=== PATIENT | female | born 1990 | race Native Hawaiian/Other Pacific Islander ===

== ENCOUNTER 2016-05-07 21:39 | Emergency (ER) | payer OTHER ==
[2016-05-07 21:59] VITALS: BP 137/82; PULSE 81; RESP 18; TEMP 98.2; O2SAT 97
[2016-05-07] MEDS ORDERED: ONDANSETRON 4 MG/2 ML VIAL IVP ONE (21:59)
[2016-05-07] MEDS ORDERED: NS 1,000 ML IV ONE (21:59)
--- NOTE | 2016-05-07 22:08 | UCPHY ---
H & P Time Seen by Provider: 05/07/16 21:55 HPI/ROS: CHIEF COMPLAINT: Nausea, vomiting, diarrhea, abdominal pain. HISTORY OF PRESENT ILLNESS: The patient is a 25 year-old female who presents with vomiting, diarrhea, and abdominal pain since yesterday. The abdominal pain is described as a pressure and is in the epigastrium. The vomiting and diarrhea have been occurring every 2 hours since onset. She denies associated fever, hematemesis, bloody stool. She ate chicken last night and believes this may be causing her symptoms. REVIEW OF SYSTEMS: Aside from elements discussed in the HPI, a comprehensive 10-point review of systems was reviewed and is negative. PAST MEDICAL HISTORY: Ulcer. SOCIAL HISTORY: Nonsmoker, no alcohol use. VITAL SIGNS: Reviewed by me GENERAL: Well-developed, well-nourished, resting comfortably in no respiratory distress. HEENT: Atraumatic. Eyes: No icterus, no injection. Mouth: moist mucous membranes. No erythema or lesions. Neck: supple with no adenopathy. LUNGS: Clear to auscultation bilaterally, no wheezes, rhonchi or rales. CARDIAC: Regular rate and rhythm, no rubs, murmurs or gallops. ABDOMEN: Epigastric tenderness. Soft, nondistended, bowel sounds normal. BACK: No CVA tenderness. EXTREMITIES: No trauma. No edema. Range of motion is normal throughout. NEURO: Alert and oriented, grossly nonfocal. SKIN: Warm and dry, no rash. PSYCHIATRIC: Normal mentation, no agitation. Portions of this note were transcribed by a medical imaging director. I personally performed a history, physical exam, medical decision making, and confirmed accuracy of information the transcribed note. Smoking Status: Never smoked Constitutional: Initial Vital Signs Temperature (C) 36.8 C 05/07/16 21:56 Heart Rate 81 05/07/16 21:56 Respiratory Rate 18 05/07/16 21:56 Blood Pressure 137/82 H 05/07/16 21:56 O2 Sat (%) 97 05/07/16 21:56 O2 Delivery Mode Room Air Allergies/Adverse Reactions: promethazine HCl [From Phenergan] Allergy (Verified 05/07/16 21:55) Home Medications: Medication Instructions Recorded Hydrocodone/APAP 5/325 [[place] 1 tab PO Q6H PRN #10 tab 05/07/16 5/325 (RX)] Ondansetron Odt [Zofran Odt 4 mg 4 mg PO Q6 PRN #8 tab 05/07/16 (RX)] Medical Decision Making ED Course/Re-evaluation: An IV was established and labs ordered. 1L IV saline administered for hydration. WBC negative at 5.05. Patient was reexamined at old 10:45 p.m.. Her nausea is improving. She has received approximately 800 cc of normal saline. She still complains of epigastric discomfort. On examination she has mild epigastric tenderness and supraumbilical tenderness to deep palpation. No right lower quadrant tenderness. No right upper quadrant tenderness. Additional pain meds were ordered. Patient was reexamined at 11:20 p.m.. She reports feeling better. She has very minimal abdominal discomfort. She has no right lower quadrant tenderness. No flank tenderness. Her nausea has been controlled. I offered her a transfer to the emergency department for ongoing therapies which she declined. We discussed reasons to return to Urgent Care. Patient will be discharged with Zofran as well as hydrocodone. Please see the discharge instructions. Differential Diagnosis: Differential diagnosis of the patient's nausea and vomiting was considered including but not limited to gastroenteritis, gastritis, intraabdominal processes including appendicitis, pancreatitis, bowel obstruction. - Data Points Laboratory Results: Laboratory Results 05/07/16 22:05 05/07/16 22:05 05/07/16 05/07/16 Unknown 22:05 WBC 5.05 10^3/uL (3.80-9.50) RBC 5.13 10^6/uL (4.18-5.33) Hgb 15.4 g/dL (12.6-16.3) Hct 44.8 % (38.0-47.0) MCV 87.3 fL (81.5-99.8) MCH 30.0 pg (27.9-34.1) MCHC 34.4 g/dL (32.4-36.7) RDW 13.2 % (11.5-15.2) Plt Count 213 10^3/uL (150-400) MPV 11.0 fL (8.7-11.7) Neut % (Auto) 67.5 % (39.3-74.2) Lymph % (Auto) 19.2 % (15.0-45.0) [place] % (Auto) 9.9 % (4.5-13.0) Eos % (Auto) 2.4 % (0.6-7.6) Baso % (Auto) 0.4 % (0.3-1.7) Nucleat RBC Rel Count 0.0 % (0.0-0.2) Absolute Neuts (auto) 3.41 10^3/uL (1.70-6.50) Absolute Lymphs (auto) 0.97 L 10^3/uL (1.00-3.00) Absolute Monos (auto) 0.50 10^3/uL (0.30-0.80) Absolute Eos (auto) 0.12 10^3/uL (0.03-0.40) Absolute Basos (auto) 0.02 10^3/uL (0.02-0.10) Absolute Nucleated RBC 0.00 10^3/uL (0-0.01) Immature Gran % 0.6 % (0.0-1.1) Immature Gran # 0.03 10^3/uL (0.00-0.10) Sodium Cancelled Potassium Cancelled Chloride Cancelled Carbon Dioxide Cancelled Anion Gap Cancelled BUN Cancelled Creatinine Cancelled Estimated GFR Cancelled Glucose Cancelled Calcium Cancelled Total Bilirubin 1.0 mg/dL Cancelled (0.1-1.4) Conjugated Bilirubin 0.3 mg/dL (0.0-0.5) Unconjugated Bilirubin 0.7 mg/dL (0.0-1.1) AST 37 IU/L Cancelled (14-46) ALT 49 IU/L Cancelled (9-52) Alkaline Phosphatase 90 IU/L Cancelled (38-126) Total Protein 7.4 g/dL Cancelled (6.3-8.2) Albumin 4.0 g/dL Cancelled (3.5-5.0) Lipase 42.0 IU/L Cancelled (23-300) Beta HCG, Qual NEGATIVE Medications Given: Discontinued Medications Fentanyl (Sublimaze) 50 mcg IVP EDNOW ONE Stop: 05/07/16 22:12 Last Admin: 05/07/16 22:15 Dose: 50 mcg Sodium Chloride (Ns) 1,000 mls @ 0 mls/hr IV ONCE ONE PRN Reason: Wide Open Stop: 05/07/16 22:00 Last Admin: 05/07/16 22:11 Dose: 1,000 mls Ondansetron HCl (Zofran) 4 mg IVP EDNOW ONE Stop: 05/07/16 22:00 Last Admin: 05/07/16 22:12 Dose: 4 mg Departure - Departure Disposition: Home, Routine, Self-Care Clinical Impression: Vomiting Qualifiers: Qualifier Code: (R11.2) Nausea with vomiting, unspecified Diarrhea Qualifiers: Qualifier Code: (R19.7) Diarrhea, unspecified Condition: Good Instructions: Acute Nausea and Vomiting (ED), Acute Diarrhea (ED) Additional Instructions: Slowly advance diet as tolerable. Be sure to get rest. Drink plenty of clear fluids. For your abdominal pain and nausea, I suggested you start with a bland diet and advance as tolerated. This means start with clear liquids such as water, Gatorade, juice, flat non- caffeinated soda. If you tolerate clear liquids, then you may add bland foods such as bananas, rice, or toast. If you do not have any worsening of your symptoms, you may begin to resume a regular diet. If your symptoms are worsening, especially if you develop ongoing abdominal pain , pain in the right lower portion of her abdomen, pain in her back, fevers, vomiting that is not controlled with the Zofran, diarrhea which is bloody, or have other concerns, please seek medical care. You may return to urgent care or go to the emergency department. Return to Urgent Care or seek out the emergency department if you experience worsening pain, bloody vomit, bloody stool, fever, or other serious worsening of condition. Referrals: LAWRENCE NAQVI,. [Primary Care Provider] - As per Instructions - PQRS PQRS Measurement: Not applicable Report Scribed for: Maria Luz Dumas Report Scribed by: Jam Skaggs Date of Report: 05/07/16 Time of Report: 22:08
[2016-05-07 22:11] LABS: % IMMATURE GRANULYOCYTES 0.6 % (0.0-1.1); ABSOLUTE IMMATURE GRANULOCYTES 0.03 10^3/uL (0.00-0.10); ADD DIFF? NO; ADD MORPH? NO; ADD SCAN? NO; ATYPICAL LYMPHOCYTE FLAG 30 (0-99); FRAGMENT RBC FLAG 0 (0-99); HEMATOCRIT 44.8 % (38.0-47.0); HEMOGLOBIN 15.4 g/dL (12.6-16.3); LEFT SHIFT FLG 0 (0-99); LIPEMIA HEMOLYSIS FLAG 90 (0-99); MEAN CELL HEMOGLOBIN CONCENTR. 34.4 g/dL (32.4-36.7); MEAN CELL VOLUME 87.3 fL (81.5-99.8); PLATELET CLUMPS FLAG 0 (0-99); PLATELET COUNT 213 10^3/uL (150-400); RED BLOOD CELL COUNT 5.13 10^6/uL (4.18-5.33); RED CELL DISTRIBUTION WIDTH 13.2 % (11.5-15.2)
[2016-05-07] MEDS ORDERED: fentaNYL 100 MCG/2 ML INJ IVP ONE (22:11)
[2016-05-07 22:26] LABS: ANION GAP 11 mEq/L (8-16); CALCIUM 9.2 mg/dL (8.5-10.4); CARBON DIOXIDE 25 mEq/l (22-31); CHLORIDE 104 mEq/L (97-110); CREATININE 0.8 mg/dL (0.6-1.0); GLOMERULAR FILTRATION RATE > 60; GLUCOSE 109 mg/dL (70-100); POTASSIUM 3.5 mEq/L (3.5-5.2); SODIUM 140 mEq/L (134-144)
[2016-05-07 22:41] LABS: BILIRUBIN-CONJUGATED 0.3 mg/dL (0.0-0.5); BILIRUBIN-UNCONJUGATED 0.7 mg/dL (0.0-1.1); TOTAL PROTEIN 7.4 g/dL (6.3-8.2)
[2016-05-07] MEDS ORDERED: HYDROmorphONE/DILAUDID 1 MG/ML SYR IVP ONE (22:44)
[2016-05-07] MEDS ORDERED: ONDANSETRON 4MG PREPACK#2 BTL TAKEHOME ONE (23:24)
[2016-05-07] MEDS ORDERED: HYDROCOD/APAP 5/325 PREPACK#6 BTL TAKEHOME ONE (23:24)
== END 2016-05-07 23:43 | disposition home or self-care (01) ==
LOC: CED 21:39
DX: R11.2 Nausea with vomiting, unspecified (principal); R19.7 Diarrhea, unspecified; R10.9 Unspecified abdominal pain
CPT/HCPCS: 80048-PO; 80076-PO; 83690-PO; 84703-PO; 85025-PO; 96361-PO; 96374-PO; 96375-PO; G0463-PO; J1170; J3010

== ENCOUNTER 2016-08-23 21:58 | Emergency (ER) | payer OTHER ==
[2016-08-23 22:13] VITALS: BP 121/81; PULSE 84; RESP 18; TEMP 97.7; O2SAT 95
[2016-08-23] MEDS ORDERED: AMOXICILLIN 250 MG PREPACK#4 BTL TAKEHOME ONE (22:21)
[2016-08-23] MEDS ORDERED: IBUPROFEN 200 MG TAB PO ONE (22:24)
--- NOTE | 2016-08-23 22:24 | UCPHY ---
H & P Time Seen by Provider: 08/23/16 22:13 Patient Type: Established HPI/ROS: This patient complains of a 2 week history of nasal congestion with the last 3 or 4 days increasing frontal sinus pain that is no moderate intensity worsens when she bends forward. She also has left more than right ear pressure. She reports a cough associated with her symptoms is primarily dry cough with rare production of sputum. She has tried loratadine Afrin without significant improvement. She also tried Advil Sinus but only took 200 mg dose this morning. No other exacerbating or alleviating factors. ROS: No high fevers or chills. No other constitutional symptoms. HEENT: She reports no significant sore throat. Neuro: No confusion. No visual changes. No numbness tingling weakness. No neck stiffness. Pulmonary: No pleuritic pain or respiratory distress. Cardiovascular: No lightheadedness. GI: No vomiting. Integumentary: No skin rash. 7 point ROS is otherwise negative Past Medical/Surgical History: Otherwise healthy Smoking Status: Never smoked Physical Exam: Physical Exam Vital signs are normal. General: No acute distress HEENT: Nose: Clear discharge bilaterally. No sinus tenderness to percussion. Ears: External canals and tympanic membranes are clear with no erythema or abnormal findings bilaterally. Oropharynx: No erythema or exudates. No dysphonia. No drooling or stridor. Eyes: Pupils equal and react to light. Extraocular motions are intact. Neck: Supple with no meningismus. No lymphadenopathy Lungs: Clear to auscultation bilaterally with no rales, rhonchi or wheeze. No respiratory distress. Cardiac: Regular rate and rhythm with no murmur gallop or rub Skin: No rash or pallor. Neuro: Alert with no focal deficits noted. Initial differential diagnosis: Viral rhinosinusitis versus bacterial sinusitis , postnasal drip with cough, doubt bronchitis. Constitutional: Initial Vital Signs Temperature (C) 36.5 C 08/23/16 22:12 Heart Rate 84 08/23/16 22:12 Respiratory Rate 18 08/23/16 22:12 Blood Pressure 121/81 H 08/23/16 22:12 O2 Sat (%) 95 08/23/16 22:12 O2 Delivery Mode Room Air Allergies/Adverse Reactions: promethazine HCl [From Phenergan] Allergy (Verified 05/07/16 21:55) Home Medications: Medication Instructions Recorded Amoxicillin Trihydrate [Amoxil] 500 mg PO TID #30 cap 08/23/16 Fluticasone Nasal [Flonase Nasal 2 sprays NASAL DAILY #1 mdi 08/23/16 Currie] MDM/Departure - [facility] ED Course/Re-evaluation: This patient appears well clinically. She has findings consistent with sinusitis. I counseled her regarding this. She is given a 1st dose of Amoxil antibiotic, ibuprofen as well. Encouraged her to stop the Afrin nasal stray, start Flonase and increased the dose of the ibuprofen. No findings clinically to suggest MANAG[employer] TRA[employer] infection or other complicating factors. - Depart Disposition: Home, Routine, Self-Care Clinical Impression: Cough Acute sinusitis Qualifiers: Sinusitis location: frontal Recurrence: non-recurrent Qualified Code(s): J01.10 - Acute frontal sinusitis, unspecified Condition: Good Instructions: Amoxicillin (By mouth), Sinusitis (ED) Additional Instructions: Diagnosis: Sinusitis 2. Cough Plan: Humidifier Plain guaifenesin [id number] mucolytic Stop the other nasal spray and start Flovent steroid nasal spray [id number] mg per 6 hours for swelling and pain Amoxil antibiotic Symptoms should gradually improve over the next 5-7 days Return for any significant worsening despite the treatment plan Prescriptions: Amoxicillin Trihydrate [Amoxil] 500 mg PO TID #30 cap Fluticasone Nasal [Flonase Nasal Currie] 2 sprays NASAL DAILY #1 mdi Referrals: LAWRENCE NAQVI,Gerri [Primary Care Provider] - As per Instructions - PQRS PQRS Measurement: GIRMA
== END 2016-08-23 22:33 | disposition home or self-care (01) ==
LOC: CED 21:58
DX: J01.10 Acute frontal sinusitis, unspecified (principal); R05 Cough
CPT/HCPCS: 99214-PO; G0463-PO

== ENCOUNTER 2017-02-14 15:21 | Emergency (ER) | payer OTHER ==
[2017-02-14 15:46] VITALS: BP 134/75; PULSE 75; RESP 16; TEMP 98.6; O2SAT 98
--- NOTE | 2017-02-14 15:57 | EDPHY ---
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 The old woman pulled on her hand and caused the patient to have pain in her thoracic, cervical and lumbar spine. This happened around noon. She took 2 ibuprofen which has helped to some degree. She denies head any weakness numbness. No bowel or bladder abnormalities. REVIEW OF SYSTEMS: Constitutional: denies: chills, fever, recent illness, recent injury EENTM: denies: blurred vision, double vision, nose congestion Respiratory: denies: cough, shortness of breath Cardiac: denies: chest pain, irregular heart rate, lightheadedness, palpitations Gastrointestinal/Abdominal: denies: abdominal pain, diarrhea, nausea, vomiting, blood streaked stools Genitourinary: denies: dysuria, frequency, hematuria, pain Musculoskeletal: See HPI Skin: denies: lesions, rash, jaundice, bruising Neurological: denies: headache, numbness, paresthesia, tingling, dizziness, weakness Hematologic/Lymphatic: denies: blood clots, easy bleeding, easy bruising Immunologic/allergic: denies: HIV/AIDS, transplant EXAM: GENERAL: Well-appearing, well-nourished and in no acute distress. HEAD: Atraumatic, normocephalic. EYES: Pupils equal round and reactive to light, extraocular movements intact, sclera anicteric, conjunctiva are normal. ENT: TMs normal, nares patent, oropharynx clear without exudates. Moist mucous membranes. NECK: Normal range of motion, supple without lymphadenopathy or JVD. LUNGS: Breath sounds clear to auscultation bilaterally and equal. No wheezes rales or rhonchi. HEART: Regular rate and rhythm without murmurs, rubs or gallops. ABDOMEN: Soft, nontender, normoactive bowel sounds. No guarding, no rebound. No masses appreciated. BACK: No CVA tenderness, no spinal tenderness, step-offs or deformities pain to the paraspinal muscles no tenderness, improves with massage EXTREMITIES: Normal range of motion, no pitting or edema. No clubbing or cyanosis. NEUROLOGICAL: Cranial nerves II through XII grossly intact. Normal speech, normal gait. 5/5 strength, normal movement in all extremities, normal sensation PSYCH: Normal mood, normal affect. SKIN: Warm, dry, normal turgor, no visible rashes or lesions. Source: Patient Exam Limitations: No limitations - Personal History Current Tetanus Diphtheria and Acellular Pertussis (TDAP): Yes - Medical/Surgical History Hx Asthma: No Hx Chronic Respiratory Disease: No Hx Diabetes: No Hx Cardiac Disease: No Hx Renal Disease: No Hx Cirrhosis: No Hx Alcoholism: No Hx HIV/AIDS: No Hx Splenectomy or Spleen Trauma: No Other PMH: denies - Family History Significant Family History: No pertinent family hx - Social History Smoking Status: Never smoked Alcohol Use: Sober Drug Use: None Constitutional: Initial Vital Signs Temperature (C) 37 C 02/14/17 15:45 Heart Rate 75 02/14/17 15:45 Respiratory Rate 16 02/14/17 15:45 Blood Pressure 134/75 H 02/14/17 15:45 O2 Sat (%) 98 02/14/17 15:45 O2 Delivery Mode Room Air Allergies/Adverse Reactions: promethazine HCl [From Phenergan] Allergy (Verified 02/14/17 15:45) Home Medications: Medication Instructions Recorded NK [No Known Home Meds] 02/14/17 Medical Decision Making ED Course/Re-evaluation: Patient has a very low risk mechanism for bony injury. We will treat with conservative therapy. I encouraged ice and heat as well as anti- inflammatories. I also encouraged her to strength in her back to physical therapy once her symptoms improved. She agrees with this plan. We will defer x -rays this time. She is requesting a note for work tomorrow. Differential Diagnosis: Partial list of the Differential diagnosis considered include but were not limited to; cervical sprain, low back pain, thoracic pain, disc bulge and although unlikely based on the history and physical exam, I also considered radiculopathy, fracture. Departure - Departure Disposition: Home, Routine, Self-Care Clinical Impression: Muscle strain Condition: Fair Instructions: Muscle Strain (ED) Referrals: LAWRENCE NAQVI,. [Primary Care Provider] - As per Instructions Stand Alone Forms: Work Excuse
== END 2017-02-14 16:08 | disposition home or self-care (01) ==
LOC: CED 15:21
DX: S39.012A Strain of muscle, fascia and tendon of lower back, initial encounter (principal); X58.XXXA Exposure to other specified factors, initial encounter; Y92.69 Other specified industrial and construction area as the place of occurrence of the external cause; Y99.0 Civilian activity done for income or pay; Y93.89 Activity, other specified

== ENCOUNTER → 2017-02-17 | Outpatient (CLI) | payer OTHER | LOC: BRMIMAGING 16:03 | PROVIDERS: ATTEND Specialist | DX: M54.2 Cervicalgia (principal) | CPT/HCPCS: 72050-PO ==

== ENCOUNTER 2017-10-07 09:42 | Emergency (ER) | payer SELFPAY ==
[2017-10-07] MEDS ORDERED: ONDANSETRON 4 MG/2 ML VIAL IVP ONE (09:55)
[2017-10-07] MEDS ORDERED: NS 1,000 ML IV ONE (09:55)
[2017-10-07] MEDS ORDERED: KETOROLAC 30 MG/1 ML SDV IVP ONE (09:55)
[2017-10-07] MEDS ORDERED: DEXAMETHASONE 10 MG/ML VIAL IVP ONE (09:58)
--- NOTE | 2017-10-07 10:09 | EDPHY ---
H & P Time Seen by Provider: 10/07/17 09:48 HPI/ROS: HPI Lightheaded, headache. 26-year-old female by private vehicle with her . This patient reports that she was sitting on the toilet this morning. When she got up from the toilet she felt lightheaded and her vision went black. She reports that she almost lost consciousness but did not. She had associated nausea and a gradual onset headache which she describes as frontal and increased in intensity slowly but has now gotten better and she states that she feels some headache in the back of her head. She had 2 episodes of vomiting at home which she describes as clear. She called work and tried to get out of going to work but had to go in. When she got to work she had continued lightheadedness and nausea. She was then told to leave work. She came from work to the emergency department with her . ROS: Constitutional: No fever, no chills. As above. Eyes: No discharge. No changes in vision. ENT: No sore throat. No nasal congestion or rhinorrhea. Respiratory: No cough. No shortness of breath. Cardiac: No chest pain, no palpitations. Gastrointestinal: No abdominal pain, as above, no diarrhea. Genitourinary: No hematuria. No dysuria or increased frequency with urination. Musculoskeletal: No back pain. No neck pain. No myalgias or arthralgias. Skin: No rashes. Neurological: As above. No focal weakness or altered sensation. Past medical history: She denies any significant past medical history. She is not on any prescription medications. Social history: Nonsmoker. Denies alcohol. Here with her . No IV drugs or street drugs. Physical Exam: General Appearance: Alert, no distress. This patient is responding to questions appropriately and in full sentences. This patient appears well- hydrated and well-nourished. Eyes: Pupils equal and round no pallor or injection. No lid edema, erythema or injection. No photophobia. No nystagmus. ENT, Mouth: Mucous membranes are moist. The pharyngeal tissues are unremarkable. No edema or swelling. No asymmetry suggestive of abscess. No erythema or exudates. No tongue lacerations or abrasions. Respiratory: There are no retractions, lungs are clear to auscultation with good air movement bilaterally. Cardiovascular: Regular rate and rhythm. No murmur. Gastrointestinal: Abdomen is soft and nontender, no masses, bowel sounds normal. No focal tenderness at McBurney's point. No Lerner sign. Neurological: Motor sensory function is grossly intact. Cranial nerves are normal. Gait is normal. Skin: Warm and dry, no rashes. Musculoskeletal: Neck is supple and nontender. No pain on flexion of her neck. No suboccipital tenderness on palpation. No tenderness of the lateral soft tissues of the neck. Extremities are symmetrical. All joints range without pain or impingement. Psychiatric: No agitation. No depression. Database: Urinalysis and urine negative. EKG: EKG time is 10:40 a.m.; EKG shows a narrow complex normal sinus rhythm with a ventricular rate of 100. The RI, QRS, QT intervals are within normal limits. There are no ST-T wave changes indicative of ischemic or injury pattern. No evidence of right heart strain. Interpreted by me. Imaging: Procedures: Emergency department course: Triage vital signs were reviewed. She was moderately hypertensive and borderline tachycardic. She is afebrile. IV was placed. She was started on IV normal saline with 500 cc to 1 L to be given over the next hour. Hemoglobin and hematocrit will be checked as well as a basic metabolic panel, urinalysis and urine . Her presentation is consistent with a vasovagal near- syncope event in an associated migraine headache syndrome. She will be given 30 mg of IV Toradol and 10 mg of IV Decadron and 4 mg of IV Zofran. She has no contraindications to NSAIDs. 11:00 a.m., patient re-evaluated. Resting comfortably at this time. Blood pressure is now 126/83. Heart rate is 82. She reports resolution of her headache. Repeat neurologic Assessment is nonfocal. Her neck is supple. No pain on flexion of her head. I discussed the results of her emergency department workup with her and her . I feel she is safe for discharge at this time and she feels comfortable going home with her . I have instructed her to follow up with her primary care physician at [facility] for re- evaluation within the next 1-2 days and to have her blood pressure rechecked again. She will do this. Return to emergency department precautions were reviewed with her. All of her questions were answered. She was discharged from the emergency department in good condition with her . Differential Diagnosis: The differential diagnosis on this patient includes but is not limited to migraine headache syndrome, vasovagal syncope, dehydration. Hypoglycemia, hyponatremia, seizure, cardiac arrhythmia, subarachnoid hemorrhage, meningitis, encephalitis, carotid artery dissection, vertebral artery dissection unlikely. This represents a partial list of diagnoses considered. These considerations are based on history, physical exam, past history, reassessment and diagnostic testing. Smoking Status: Never smoked Constitutional: Initial Vital Signs Temperature (C) 37.0 C 10/07/17 09:48 Heart Rate 100 10/07/17 09:48 Respiratory Rate 18 10/07/17 09:48 Blood Pressure 149/108 H 10/07/17 09:48 O2 Sat (%) 95 10/07/17 09:48 O2 Delivery Mode Room Air Allergies/Adverse Reactions: promethazine HCl [From Phenergan] Allergy (Verified 10/07/17 09:49) Home Medications: Medication Instructions Recorded NK [No Known Home Meds] 02/14/17 Medical Decision Making - Data Points Laboratory Results: 10/07/17 10:31 POC Hgb 16.7 gm/dL H gm/dL (12.6-16.3) POC Hct 49 % H % (38-47) POC Sodium 140 mEq/L mEq/L (135-145) POC Potassium 3.5 mEq/L mEq/L (3.3-5.0) POC Chloride 102 mEq/L mEq/L (97-110) POC BUN 16 mg/dL mg/dL (7-23) POC Creatinine 0.7 mg/dL mg/dL (0.6-1.0) POC Glucose 111 mg/dL H mg/dL (70-100) Medications Given: Discontinued Medications Dexamethasone (Decadron Injection) 10 mg IVP EDNOW ONE Stop: 10/07/17 09:59 Last Admin: 10/07/17 10:29 Dose: 10 mg Sodium Chloride (Ns) 1,000 mls @ 0 mls/hr IV ONCE ONE; Wide Open PRN Reason: Protocol Stop: 10/07/17 09:56 Last Admin: 10/07/17 10:24 Dose: 1,000 mls Ketorolac Tromethamine (Toradol) 30 mg IVP EDNOW ONE Stop: 10/07/17 09:56 Last Admin: 10/07/17 10:31 Dose: 30 mg Ondansetron HCl (Zofran) 4 mg IVP EDNOW ONE Stop: 10/07/17 09:56 Last Admin: 10/07/17 10:25 Dose: 4 mg Point of Care Test Results: Chemistry 10/07/17 10:31 POC Sodium 140 mEq/L mEq/L (135-145) POC Potassium 3.5 mEq/L mEq/L (3.3-5.0) POC Chloride 102 mEq/L mEq/L (97-110) POC BUN 16 mg/dL mg/dL (7-23) POC Creatinine 0.7 mg/dL mg/dL (0.6-1.0) POC Glucose 111 mg/dL H mg/dL (70-100) ISTAT H&H 10/07/17 10:31 POC Hgb 16.7 gm/dL H gm/dL (12.6-16.3) POC Hct 49 % H % (38-47) Urine Collection Date 10/07/17 Collection Time 10:00 HCG Results Negative Urine Dip Collection Date 10/07/17 Collection Time 10:00 Specific [place] (1.002-1.030) 1.020 PH (5.0-7.5) 7.0 Leukocytes (Negative) Trace Nitrites (Negative) Negative Protein (Negative) Trace Glucose (Negative) Negative Ketones (Negative) Negative Urobilnogen (0.2-1.0 EU) 0.2 Bilirubin (Negative) Negative Blood (Negative) Negative Departure - Departure Disposition: Home, Routine, Self-Care Clinical Impression: Headache, Lightheaded Condition: Good Instructions: Acute Headache (ED), Lightheadedness (ED) Additional Instructions: Read and follow provided instructions. Follow-up with your primary care physician at [facility] in 1-2 days for re- evaluation. Have your blood pressure rechecked at this time. Keep yourself well hydrated. Get plenty of rest today. No strenuous activity. Return to the emergency department for worsening symptoms, worsening headache, vomiting, neck pain, fever, fainting or other serious concerns. Referrals: FAVIAN BRAVO [Other] - As per Instructions Stand Alone Forms: Work Excuse
--- NOTE | 2017-10-07 10:42 | CPEKG ---
Heart Rate: 100 RR Interval: 600 P-R Interval: 160 QRSD Interval: 74 QT Interval: 352 QTC Interval: 454 P [place]: 45 QRS [place]: 26 T Wave [place]: 8 EKG Severity - OTHERWISE NORMAL ECG - EKG Impression: SINUS TACHYCARDIA Electronically Signed By: Andrade Griffin 07-Oct-2017 12:23:59
[2017-10-07 11:06] VITALS: BP 126/83
== END 2017-10-07 11:25 | disposition home or self-care (01) ==
LOC: CED 09:42
DX: R51 Headache (principal); R42 Dizziness and giddiness; E86.9 Volume depletion, unspecified
CPT/HCPCS: 82435-PO; 82565-PO; 82947-PO; 84132-PO; 84295-PO; 84520-PO; 85014-PO; 96374; J1100; J1885; J2405